=== PATIENT | female | born 1965 | race Caucasian/White ===

== ENCOUNTER 2016-08-20 09:22 | Day surgery (SDC) | payer OTHER ==
--- NOTE | ~2016-08-20 | EGD ---
EGD REPORT [facility] [address] [place]. [place] [address] NAME: LOLIS POZO : 61 STATUS : REG [facility] PAT#: [id number] AGE: 51 ADM/REG DATE : 08/20/16 MR#: [id number] REPORT SERV DATE: 08/20/16 DICTATED BY: MALCOLM SALDANA DATE: 08/20/16 REPORT STATUS : Draft [facility]ANSCRIBED BY: [facility] DATE: 08/20/16 [facility] Patient Name: Lolis Pozo Date of : 1965 Attending MD: MALCOLM SALDANA MD Procedure Date No Time: 08/20/2016 Procedure: Colonoscopy Indications: Screening for colorectal malignant neoplasm, This is the patient's first colonoscopy Referring MD: MARY CHAPMAN MD Medicines: Propofol per Anesthesia Complications: No immediate complications. Estimated blood loss: None. Procedure: Pre-Anesthesia Assessment: - After reviewing the risks and benefits, the patient was deemed in satisfactory condition to undergo the procedure. - Prior to the procedure, a History and Physical was performed, and patient medications and allergies were reviewed. The patient's tolerance of previous anesthesia was also reviewed. The risks and benefits of the procedure and the sedation options and risks were discussed with the patient. All questions were answered, and informed consent was obtained. Prior Anticoagulants: The patient has taken no previous anticoagulant or antiplatelet agents. ASA Grade Assessment: I - A normal, healthy patient. After reviewing the risks and benefits, the patient was deemed in satisfactory condition to undergo the procedure. After I obtained informed consent, the scope was passed under direct vision. Throughout the procedure, the patient's blood pressure, pulse, and oxygen saturations were monitored continuously. The CF [id number] was introduced through the anus and advanced to the cecum, identified by appendiceal orifice and ileocecal valve. The colonoscopy was performed without difficulty. The ileocecal valve and appendiceal orifice were photographed. The patient tolerated the procedure well. The quality of the bowel preparation was excellent. The bowel preparation used was split dose polyethylene glycol (PEG). Scope withdrawal time was greater than 9 minutes. Findings: The perianal and digital rectal examinations were normal. Pertinent negatives include normal sphincter tone. EGD REPORT [address] [place]. [address] NAME: LOLIS POZO : [birth year] STATUS : REG [facility] PAT#: [id number] AGE: 51 ADM/REG DATE : 08/20/16 MR#: [id number] REPORT SERV DATE: 08/20/16 DICTATED BY: MALCOLM SALDANA DATE: 08/20/16 REPORT STATUS : Draft TRANSCRIBED BY: [facility] DATE: 08/20/16 A single small-mouthed diverticulum was found in the ascending colon. The exam was otherwise without abnormality on direct and retroflexion views. Impression: - Diverticulosis in the ascending colon. - The examination was otherwise normal on direct and retroflexion views. Recommendation: - Discharge patient to home (ambulatory). - High fiber diet indefinitely. - Continue present medications. - Collect Hemoccults on three spontaneously passed stools annually. - Repeat colonoscopy in 10 years for screening purposes. - Patient has a contact number available for emergencies. The signs and symptoms of potential delayed complications were discussed with the patient. Return to normal activities tomorrow. Written discharge instructions were provided to the patient. Procedure Code(s): --- Professional --- G0121, Colorectal cancer screening; colonoscopy on individual not meeting criteria for high risk Diagnosis Code(s): --- Professional --- K57.30, Diverticulosis of large intestine without perforation or abscess without bleeding Z12.11, Encounter for screening for malignant neoplasm of colon CPT copyright 2013 [employer]. All rights reserved. The codes documented in this report are preliminary and upon car construction superintendent review may be revised to meet current compliance requirements. MALCOLM SALDANA MD 08/20/2016 11:10 AM This report has been signed electronically. Number of Addenda: 0 Note Initiated On: 08/20/2016 10:41 AM Scope Withdrawal Time 0 hours 11 minutes 30 seconds [id number] [id number]
[~2016-08-20 09:22] MED LIST: COQ-10200 MG PO; FISH-EPA1000 MG PO; MULTIPLE VIT PO; VITAMIN D31000 UNIT
== END 2016-08-20 23:59 | disposition home or self-care (01) ==
LOC: DMU 09:22
PROVIDERS: Internal Medicine Gastroenterology
PROC: 0DJD8ZZ Inspection of Lower Intestinal Tract, Via Natural or Artificial Opening Endoscopic (ICD-10-PCS; principal; 2016-08-20 10:30)
DX: Z12.11 Encounter for screening for malignant neoplasm of colon (principal); K57.30 Diverticulosis of large intestine without perforation or abscess without bleeding; Z98.890 Other specified postprocedural states; Z79.899 Other long term (current) drug therapy